=== PATIENT | male | born 1980 | race Caucasian/White ===

== ENCOUNTER 2019-07-09 20:43 | Emergency (ER) | payer MEDICAID ==
[~2019-07-09] VITALS: Ht 188 cm; Wt 93.8 kg
[~2019-07-09 20:43] MED LIST: DESV50TA PO; GABA-532 PO; INSU100V36 SQ; LORA1TAB PO; METH5TAB2 PO; OLAN10TA19 PO; PER10325T PO
[2019-07-09] MEDS ORDERED: insulin regular, human 10 units/0.1 ml syringe IV ONE (21:00)
[2019-07-09] MEDS ORDERED: ondansetron/PF 4mg/2ml inj IV ONE (21:00)
[2019-07-09] MEDS ORDERED: normal saline 1000ML IV soln IVB ONE (21:00)
--- NOTE | 2019-07-09 21:39 | NUR ---
PT STATES HE "CANT PEE" AND IS UNABLE TO PROVIDE A URINE SAMPLE AT THIS TIME. WILL CONTINUE TO MONITOR AND ATTEMPT TO OBTAIN SAMPLE.
[2019-07-09 21:47] LABS: BASOPHILS # (AUTO) 0.1 X10'3 (0-0.2); BASOPHILS % (AUTO) 0.7 % (0-1); EOSINOPHILS % (AUTO) 0.1 % (0-6); HEMATOCRIT 44.5 % (42.0-52.0); HEMOGLOBIN 14.6 g/dl (14.0-17.9); LYMPHOCYTES # (AUTO) 1.5 X10'3 (1.1-4.8); LYMPHOCYTES % (AUTO) 13.3 % (21-51); MEAN CORPUSCULAR HEMOGLOBIN 27.3 PG (27.0-31.0); MEAN CORPUSCULAR HGB CONC 32.9 g/dL (33.0-36.5); MEAN CORPUSCULAR VOLUME 82.9 FL (78-98); MEAN PLATELET VOLUME 7.6 FL (7.4-10.4); MONOCYTES # (AUTO) 0.3 X10'3 (0-0.9); MONOCYTES % (AUTO) 2.4 % (2-12); NEUTROPHILS # (AUTO) 9.2 X10'3 (1.8-7.7); NEUTROPHILS % (AUTO) 83.5 % (42-75); PLATELET COUNT 440 X10'3 (140-440); RED BLOOD COUNT 5.37 X10'6 (4.70-6.10); RED CELL DISTRIBUTION WIDTH 14.7 % (11.5-14.5)
[2019-07-09 21:55] LABS: ALANINE AMINOTRANSFERASE 20 U/L (12-78); ALBUMIN 3.1 G/DL (3.4-5.0); ALBUMIN/GLOBULIN RATIO 0.6 (1.1-1.5); ALKALINE PHOSPHATASE 130 IU/L (46-116); ANION GAP 18 (8-16); ASPARTATE AMINO TRANSFERASE 17 U/L (10-37); BILIRUBIN,TOTAL 0.7 MG/DL (0.1-1.0); BLOOD UREA NITROGEN 18 MG/DL (7-18); BUN/CREATININE RATIO 15.9 (5.4-32.0); CHLORIDE 97 MMOL/L (99-107); CREATININE 1.13 MG/DL (0.60-1.10); GLUCOSE 380 MG/DL (70-104); MAGNESIUM 1.6 MG/DL (1.5-2.4); POTASSIUM 4.8 MMOL/L (3.5-5.1); SODIUM 135 MMOL/L (135-145); TOTAL CARBON DIOXIDE 20.3 MMOL/L (24-32); TOTAL PROTEIN 8.1 G/DL (6.4-8.2); eGFR 73 ML/MIN
--- NOTE | 2019-07-09 22:05 | NUR ---
ATTEMPTED TO OBTAIN URINE SAMPLE. PT STATES "I JUST TRIED AND COULDNT. ILL TRY AGAIN IN A FEW MINUTES." WILL CONTINUE TO MONITOR
[2019-07-09] MEDS ORDERED: insulin regular, human 10 units/0.1 ml syringe SQ ONE (22:35)
[2019-07-09 22:55] LABS: CLARITY,URINE CLEAR (Clear); COLOR,URINE YELLOW (Yellow); GLUCOSE, URINE 500 mg/dl (Neg); KETONES,URINE >=80 mg/dl (Neg); LEUKOCYTE ESTERASE ,URINE NEGATIVE (Neg); NITRITES, URINE NEGATIVE (Neg); OCCULT BLOOD,URINE NEGATIVE (Neg); PH,URINE 5.5 (4.8-8.0); PROTEIN,URINE NEGATIVE (Neg); UROBILINOGEN,URINE 0.2 E.U/dL (0.2-1.0)
[2019-07-09 23:02] LABS: URINE AMPHETAMINE SCREEN NEGATIVE (Neg); URINE BARBITUATE SCREEN NEGATIVE (Neg); URINE BENZODIAZEPINES SCREEN POSITIVE (Neg); URINE CANNABINOID SCREEN POSITIVE (Neg); URINE COCAINE SCREEN NEGATIVE (Neg); URINE METHADONE SCREEN NEGATIVE (Neg); URINE OPIATE SCREEN POSITIVE (Neg); URINE PHENCYCLIDINE SCREEN NEGATIVE (Neg)
[2019-07-09 23:17] LABS: UA COLLECTION TYPE URINAL
--- NOTE | 2019-07-09 23:57 | NUR ---
MT JOANA AT BEDSIDE. PT DENIES DRINKING IT, BUT GLUCOSE ISNT GOING DOWN
[2019-07-10] MEDS ORDERED: insulin regular, human 10 units/0.1 ml syringe IV ONE (00:05)
[2019-07-10] MEDS ORDERED: normal saline 1000ml 1,000 ML IV STA ×2 (00:41)
[2019-07-10] MEDS ORDERED: insulin regular, human 10 units/0.1 ml syringe SQ STA (01:41)
[2019-07-10 02:25] VITALS: BP 124/46
== END 2019-07-10 02:41 | disposition home or self-care (01) ==
LOC: ER 20:43
DX: E11.65 Type 2 diabetes mellitus with hyperglycemia (principal); F31.9 Bipolar disorder, unspecified; Z79.4 Long term (current) use of insulin; Z79.899 Other long term (current) drug therapy
CPT/HCPCS: 36415; 80053; 80305; 81003; 82948; 83735; 85025; 96361; 96372; 96374; 96375; 96376; 99284; J1815; J2405; J7030

== ENCOUNTER 2023-10-29 19:42 | Emergency (ER) | payer MEDICAID ==
[~2023-10-29] VITALS: Ht 185.4 cm; Wt 91.4 kg
[~2023-10-29 19:42] MED LIST changes: +METH-806 PO; -METH5TAB2 PO; -OLAN10TA19 PO; +OLAN10TA40 PO
[2023-10-29 20:17] VITALS: BP 113/74; PULSE 114; RESP 18; TEMP 98.2; O2SAT 98
[2023-10-29 20:41] LABS: BASOPHILS # (AUTO) 0.1 X10'3 (0-0.2); BASOPHILS % (AUTO) 0.9 % (0-1); EOSINOPHILS # (AUTO) 0.1 X10'3 (0-0.9); EOSINOPHILS % (AUTO) 0.8 % (0-6); HEMATOCRIT 46.2 % (42.0-52.0); HEMOGLOBIN 15.1 g/dl (14.0-17.9); LYMPHOCYTES # (AUTO) 2.9 X10'3 (1.1-4.8); LYMPHOCYTES % (AUTO) 28.2 % (21-51); MEAN CORPUSCULAR HEMOGLOBIN 26.7 PG (27.0-31.0); MEAN CORPUSCULAR HGB CONC 32.5 g/dL (33.0-36.5); MEAN CORPUSCULAR VOLUME 81.9 FL (78-98); MEAN PLATELET VOLUME 7.4 FL (7.4-10.4); MONOCYTES # (AUTO) 0.7 X10'3 (0-0.9); MONOCYTES % (AUTO) 6.7 % (2-12); NEUTROPHILS # (AUTO) 6.5 X10'3 (1.8-7.7); NEUTROPHILS % (AUTO) 63.4 % (42-75); PLATELET COUNT 497 X10'3 (140-440); RED BLOOD COUNT 5.65 X10'6 (4.70-6.10); RED CELL DISTRIBUTION WIDTH 14.2 % (11.5-14.5); WHITE BLOOD COUNT 10.3 X10'3 (4.5-11.0)
[2023-10-29 20:56] LABS: ALANINE AMINOTRANSFERASE 22 U/L (12-78); ALBUMIN 3.4 G/DL (3.4-5.0); ALBUMIN/GLOBULIN RATIO 0.7 (1.1-1.5); ALKALINE PHOSPHATASE 129 IU/L (46-116); ANION GAP 13 (8-16); ASPARTATE AMINO TRANSFERASE 14 U/L (10-37); BILIRUBIN,TOTAL 0.7 MG/DL (0.1-1.0); BLOOD UREA NITROGEN 18 MG/DL (7-18); CHLORIDE 93 MMOL/L (99-107); GLUCOSE 379 MG/DL (70-104); LIPASE 21 U/L (16-77); POTASSIUM 4.2 MMOL/L (3.5-5.1); SODIUM 128 MMOL/L (135-145); eCRCL 73 ML/MIN; eGFR 52 ML/MIN
== END 2023-10-30 01:17 | disposition left against medical advice (07) ==
LOC: ER 19:43
DX: R11.2 Nausea with vomiting, unspecified (principal); R42 Dizziness and giddiness; Z53.21 Procedure and treatment not carried out due to patient leaving prior to being seen by health care provider
CPT/HCPCS: 36415; 80053; 82948; 83690; 85025; 99281